=== PATIENT | female | born 1985 | race Caucasian/White ===

== ENCOUNTER 2024-01-24 15:48 | Observation (INO) | payer MEDICARE, SELFPAY ==
--- NOTE | 2024-01-24 16:18 | OBADM ---
This patient, Shereen Mariscal, admitted to the OB room [facility] for observation. Patient/family oriented to hospital policies and general routines including ID bracelet, bed and alarms, visiting hours, pain management, procedures, bathroom and other care routines, personal items, smoking policy, room service/diet, and visiting hours. Patient/Family are encouraged to report perceived risks to care and to ask questions if they do not understand what they are told or what they should do.
[2024-01-24 16:19] VITALS: BP 148/80; PULSE 106
[2024-01-24 16:30] VITALS: BP 144/83; PULSE 120
--- NOTE | 2024-01-24 16:35 | PC.NURSE ---
Patient presents to labor with c/o spotting. Patient states that she has not seen a MD, patient reports that her last LMP was 08/31/23. Patient was very overly animated while talking. RN attempted to doppler FHT's for over 15 minutes and was unable to find FHT's. Unable to palpate fundal height. Patient was unconcerned when RN was unable to hear FHT's. Patient reports feeling movement, RN was unable to palpate movement when patient pointed it out. Patient states that her urine and blood tests with [facility] was always negative and they had to find the baby with a 4D US.
--- NOTE | 2024-01-24 16:36 | PC.NURSE ---
Dr Carrion notified notified of patient history of spotting and leaking on the , unable to find FHT's or palpate fundal height, informed that patient was overly animated and unconcerned when unable to find FHT's. Order for bedside test. If negative DC patient home and instruct to follow up with a MD.
--- NOTE | 2024-01-24 16:54 | PC.NURSE ---
Bedside urine test was negative. Patient informed of results. Patient states that she expected it to be negative and remains overly animated with her responses. Patient encouraged to go to ER if she feels like she needs additional evaluation or find a MD to follow up with.
--- NOTE | 2024-01-24 17:16 | PC.NURSE ---
[facility] notified of this patient, security notified to pull picture of patient and s/o. Nursing natural gas field processing supervisor also notified.
--- NOTE | 2024-01-24 17:30 | PC.NURSE ---
Dr Carrion informed that bedside urine preg test was negative.
--- NOTE | 2024-01-26 09:10 | PM.OBTRLD ---
OB - Triage/Final Diagnosis Visit Information Date of evaluation: 01/24/24 Reason for evaluation: threatened labor Comments/Additional reasons for admission: I have assessed the risk for this patient, Shereen Mariscal, and determined that she would benefit from observation care.
== END 2024-01-24 17:05 | disposition home or self-care (01) ==
PROVIDERS: Admitting Provider Student in an Organized Health Care Education/Training Program; Visit Provider Student in an Organized Health Care Education/Training Program
DX: O47.02 False labor before 37 completed weeks of gestation, second trimester (principal); Z3A.20 20 weeks gestation of pregnancy
CPT/HCPCS: G0378; G0379